=== PATIENT | female | born 1945 ===

== ENCOUNTER 2022-07-09 05:42 | Emergency (ER) | payer OTHER ==
[~2022-07-09] VITALS: Ht 167.6 cm; Wt 56.7 kg
[2022-07-09] MEDS ORDERED: LOSARTAN POTASS25 MG (06:02)
[2022-07-09] MEDS ORDERED: DICY20TA (06:02)
[2022-07-09] MEDS ORDERED: DIOVAN40 MG (06:03)
== END 2022-07-09 09:58 | disposition left against medical advice (07) ==
LOC: ER 05:42
DX: U07.1 COVID-19 (principal); R10.84 Generalized abdominal pain; I10 Essential (primary) hypertension